=== PATIENT | male | born 1990 | race African-American/Black ===

== ENCOUNTER 2025-04-04 01:26 | Emergency (ER) | payer MEDICAID ==
[~2025-04-04] VITALS: Ht 180.3 cm; Wt 138.3 kg
[2025-04-04] MEDS ORDERED: ACETAMINOPHEN 325 MG TABLET ONE (01:59)
[2025-04-04] MEDS ORDERED: MAG HYDROX/AL HYDROX/SIMETH 30 ML UDC ONE (01:59)
[2025-04-04] MEDS ORDERED: ASPIRIN 81 MG TAB.CHEW ONE (01:59)
[2025-04-04] MEDS ORDERED: FAMOTIDINE (20 MG) 20 MG TABLET ONE (02:02)
[2025-04-04] MEDS: ASPIRIN 81 MG TAB.CHEW PO ONE (02:05)
[2025-04-04] MEDS: FAMOTIDINE (20 MG) 20 MG TABLET PO ONE (02:05)
[2025-04-04] MEDS: ACETAMINOPHEN 325 MG TABLET PO ONE (02:05)
[2025-04-04] MEDS: MAG HYDROX/AL HYDROX/SIMETH 30 ML UDC PO ONE (02:06)
[2025-04-04 02:12] LABS: PLATELET COUNT (AUTO) 278 K/uL (150-450); RED BLOOD CELL COUNT(AUTO) 5.64 MIL/uL (4.5-6.0); RED CELL DISTRIBUTION WIDTH 14.3 % (11.5-15.0); WHITE BLOOD COUNT (AUTO) 8.0 K/uL (4.3-11.0)
[2025-04-04 02:19] LABS: CALCIUM, SERUM 9.2 mg/dL (8.5-10.1); CREATININE 1.4 mg/dL (0.6-1.3); SODIUM SERUM 138 mmol/L (136-145); UREA NITROGEN, BLOOD 18 mg/dL (7-18)
[2025-04-04 02:25] LABS: ALCOHOL, BLOOD < 3 mg/dL (0-10); ASPARTATE AMINOTRANSFERASE 311 U/L (15-37); TOTAL PROTEIN, SERUM 8.3 g/dL (6.4-8.2)
[2025-04-04] MEDS ORDERED: MIDAZOLAM HCL 2 MG/2ML VIAL ONE (02:29)
[2025-04-04] MEDS: MIDAZOLAM HCL 2 MG/2ML VIAL IM ONE (02:32)
[2025-04-04] MEDS ORDERED: HALOPERIDOL LACTATE INJ 5 MG/ML VIAL ONE (02:50)
[2025-04-04] MEDS: HALOPERIDOL LACTATE INJ 5 MG/ML VIAL IM ONE (02:58)
[2025-04-04 04:21] LABS: APPEARANCE,URINE CLEAR (CLEAR); BLOOD, URINE NEGATIVE Ery/uL (NEGATIVE); LEUKOCYTE ESTERASE ,URINE NEGATIVE (NEGATIVE); NITRITE, URINE NEGATIVE (NEGATIVE); UGLUCOSE NEGATIVE (NEGATIVE)
[2025-04-04 04:26] LABS: BARBITURATE, URINE NEGATIVE (NEGATIVE); BENZODIAZEPINE, URINE NEGATIVE (NEGATIVE); COCCAINE, URINE NEGATIVE (NEGATIVE); OPIATE, URINE NEGATIVE (NEGATIVE)
[2025-04-04 04:28] LABS: ADD URINE CULTURE NO; AMPHETAMINE, URINE POSITIVE (NEGATIVE); SQUAMOUS EPITHELIAL CELL,UR Rare /HPF (None Seen)
[2025-04-04 04:29] LABS: CANNABINOID, URINE POSITIVE (NEGATIVE)
[2025-04-04 10:00] VITALS: TEMP 98.6
[2025-04-04 11:35] VITALS: BP 132/90; O2SAT 97
== END 2025-04-04 12:35 ==
LOC: ER 01:45
DX: R45.851 Suicidal ideations (principal); R45.850 Homicidal ideations; F31.9 Bipolar disorder, unspecified; F20.9 Schizophrenia, unspecified; F17.200 Nicotine dependence, unspecified, uncomplicated; F15.10 Other stimulant abuse, uncomplicated; F12.90 Cannabis use, unspecified, uncomplicated; E66.01 Morbid (severe) obesity due to excess calories; Z20.822 Contact with and (suspected) exposure to COVID-19
CPT/HCPCS: 99285; 96372 ×2; 93005; 71045; 85025; 80048; 80076; 81001; 36415; 84484 ×2; 87426; 80143; 80320; 80307; J1200; J1630; J2250; G0480